=== PATIENT | female | born 1960 | race American Indian/Alaskan Native ===

== ENCOUNTER 2018-09-03 15:28 | Emergency (ER) | payer SELFPAY ==
[2018-09-03 15:28] VITALS: BMI 25.8
[2018-09-03 15:51] VITALS: O2SAT 98
[2018-09-03] MEDS ORDERED: Sodium Chloride 0.9% 1,000 ML IV SCH (16:15)
[2018-09-03 16:36] LABS: BASO # 0.01 K/mm3 (0.0-2.0); BASO % 0.2 % (0.0-3.0); EOS # 0.2 (0.0-0.7); EOS % 3.6 % (1.5-5.0); HEMOGLOBIN 12.7 g/dL (12.0-16.0); LYMPH # 1.6 (1.2-3.4); LYMPH % 33.7 % (22.0-35.0); MEAN CELL VOLUME 78.4 fl (80.0-105.0); MEAN CORPUSCULAR HGB CONC 31.8 g/dl (31.0-37.0); MEAN PLATELET VOLUME 9.9 fl (7.0-11.0); MONO # 0.4 (0.1-0.6); MONO % 9.2 % (1.0-6.0); RBC 5.09 10^6/uL (3.5-6.1); RED CELL DISTRIBUTION WIDTH 14.4 % (11.5-14.5); WHITE BLOOD COUNT 4.7 10^3/uL (4.5-11.0)
[2018-09-03 17:05] LABS: ALB/GLOB RATIO 0.9 (1.1-1.8); ALBUMIN 4.1 g/dL (3.0-4.8); ALT/SGPT 33 U/L (7-56); AST/SGOT 46 U/L (14-36); BLOOD UREA NITROGEN 17 mg/dL (7-21); GFR NON-AFRICAN AMERICAN > 60
--- NOTE | 2018-09-03 17:11 | RAD ---
Date of service: 09/03/2018 HISTORY: r/o infiltrate COMPARISON: No prior. FINDINGS: LUNGS: No active pulmonary disease. PLEURA: No significant pleural effusion identified, no pneumothorax apparent. CARDIOVASCULAR: No atherosclerotic calcification present Normal. OSSEOUS STRUCTURES: No significant abnormalities. VISUALIZED UPPER ABDOMEN: Normal. OTHER FINDINGS: None. IMPRESSION: No active disease.
[2018-09-03 17:15] LABS: TROPONIN I < 0.01 ng/mL
--- NOTE | 2018-09-03 17:42 | ED PDOC ---
Arrival/HPI - General Chief Complaint: Dizziness/Lightheaded Time Seen by Provider: 09/03/18 15:37 Historian: Patient - History of Present Illness Narrative History of Present Illness (Text): 09/03/18 17:42 58 year old female, with a Past medical history of hypertension, who presents to the Emergency department complaining of dizziness onset earlier today. Patient reports she stood from sitting on a toilet and seconds later began feeling dizzy. She reports episodes of dizziness last for a few seconds and states that it has now subsided. Patient denies any loss of consciousness, fever, headaches, cough, nausea, vomiting, fatigue or any other complaints. Time/Duration: 24 hours Symptom Onset: Sudden Symptom Course: Unchanged Activities at Onset: Light Context: Home Past Medical History - Provider Review Nursing Documentation Reviewed: Yes - Cardiac Hx Hypertension: Yes - Psychiatric Hx Depression: No Hx Emotional Abuse: No Hx Physical Abuse: No Hx Substance Use: No - Past Surgical History Past Surgical History: Non-Contributing - Suicidal Assessment Feels Threatened In Home Enviroment: No Family/Social History - Physician Review Nursing Documentation Reviewed: Yes Family/Social History: Unknown Family HX Smoking Status: Never Smoked Hx Alcohol Use: No Hx Substance Use: No Hx Substance Use Treatment: No Allergies/Home Meds Allergies/Adverse Reactions: Allergies No Known Allergies Allergy (Verified 03/28/13 17:30) Review of Systems - Physician Review All systems were reviewed & negative as marked: Yes - Review of Systems Constitutional: absent: Fatigue, Fevers Respiratory: absent: SOB, Cough Cardiovascular: absent: Chest Pain Gastrointestinal: absent: Abdominal Pain, Nausea, Vomiting Musculoskeletal: absent: Back Pain, Neck Pain Skin: absent: Rash Neurological: Dizziness. absent: Headache Physical Exam Vital Signs Reviewed: Yes Vital Signs Temp Pulse Resp BP Pulse Ox 09/03/18 15:46 98.2 F 86 18 155/78 H 98 Temperature: Afebrile Blood Pressure: Hypertensive Pulse: Regular Respiratory Rate: Normal Appearance: Positive for: Well-Appearing, Non-Toxic, Comfortable Pain Distress: None Mental Status: Positive for: Alert and Oriented X 3 - Systems Exam Head: Present: Atraumatic, Normocephalic Pupils: Present: PERRL Extroacular Muscles: Present: EOMI Conjunctiva: Present: Normal Mouth: Present: Moist Mucous Membranes Neck: Present: Normal Range of Motion Respiratory/Chest: Present: Clear to Auscultation, Good Air Exchange. No: Respiratory Distress, Accessory Muscle Use Cardiovascular: Present: Regular Rate and Rhythm, Normal S1, S2. No: Murmurs Abdomen: No: Tenderness, Distention, Peritoneal Signs Back: Present: Normal Inspection Upper Extremity: Present: Normal Inspection. No: Cyanosis, Edema Lower Extremity: Present: Normal Inspection. No: Edema Neurological: Present: GCS=15, Speech Normal Skin: Present: Warm, Dry, Normal Color. No: Rashes Psychiatric: Present: Alert, Oriented x 3, Normal Insight, Normal Concentration Medical Decision Making ED Course and Treatment: 09/03/18 17:39 Impression: 58 year old female presents to the Emergency department complaining of dizziness onset earlier today. Differential Diagnosis included but are not limited to: Plan: -- Chest X-ray -- CT head -- EKG -- IV Fluids -- Basic labs -- Reassess and disposition Prior Visits: Notes and results from previous visits were reviewed. Progress Notes: EKG reviewed, shows NSR at 62, normal axis and interval 09/03/18 19:00 I spoke with patient extensively about the CAT Scan reading. I stated patient will require further testing in the future for definite diagnosis based upon findings. Patient does have a PCP, but i gave the option of seeing a physician here in our clinic. Patient understood and will follow up in 2 days. - Lab Interpretations Lab Results: Troponin I < 0.01 ng/mL 09/03/18 16:25 Total Bilirubin 1.1 mg/dL (0.2-1.3) 09/03/18 16:25 AST 46 U/L (14-36) H 09/03/18 16:25 ALT 33 U/L (7-56) 09/03/18 16:25 Alkaline Phosphatase 95 U/L (38-126) 09/03/18 16:25 Total Protein 8.3 g/dL (5.8-8.3) 09/03/18 16:25 Albumin 4.1 g/dL (3.0-4.8) 09/03/18 16:25 Globulin 4.3 gm/dL 09/03/18 16:25 Albumin/Globulin Ratio 0.9 (1.1-1.8) L 09/03/18 16:25 - RAD Interpretation Radiology Orders: 09/03/18 16:09 HEAD W/O CONTRAST [CT] Stat 09/03/18 16:11 CHEST PORTABLE [RAD] Stat - Medication Orders Current Medication Orders: Sodium Chloride (Sodium Chloride 0.9%) 1,000 mls @ 100 mls/hr IV .Q10H MARIA L Last Admin: 09/03/18 16:42 Dose: 100 mls/hr eMAR Start Stop Document 09/03/18 16:42 MA (Rec: 09/03/18 16:42 MA [facility] [id number]) Intravenous Solution Start Date 09/03/18 Start Time 16:42 - Scribe Statement The provider has reviewed the documentation as recorded by the Scribe Jamal Lopez All medical record entries made by the Scribe were at my direction and personally dictated by me. I have reviewed the chart and agree that the record accurately reflects my personal performance of the history, physical exam, medical decision making, and the department course for this patient. I have also personally directed, reviewed, and agree with the discharge instructions and disposition. Disposition/Present on Arrival - Present on Arrival Any Indicators Present on Arrival: No History of DVT/PE: No History of Uncontrolled Diabetes: No Urinary Catheter: No History of Decub. Ulcer: No History Surgical Site Infection Following: None - Disposition Have Diagnosis and Disposition been Completed?: Yes Diagnosis: Dizziness Disposition: HOME/ ROUTINE Disposition Time: 18:25 Condition: GOOD Discharge Instructions (ExitCare): Dizziness, Nonvertigo, (DC) Additional Instructions: MAT RAYGOZA, thank you for letting us take care of you today. The emergency medical care you received today was directed at your acute symptoms. If you were prescribed any medication, please fill it and take as directed. It may take s everal days for your symptoms to resolve. Return to the Emergency Department if your symptoms worsen, do not improve, or if you have any other problems. Please contact your doctor or call one of the physicians/clinics you have been referred to that are listed on the Patient Visit Information form that is included in your discharge packet. Bring any paperwork you were given at discharge with you along with any medications you are taking to your follow up visit. Our treatment cannot replace ongoing medical care by a primary care provider outside of the emergency department. Thank you for allowing the [facility] team to be part of your care today. Please follow up with your doctor or our clinic in 2-3 days for further management. You will need further testing based upon what we discovered here in the emergency room today. Referrals: [facility] [employer] [facility] [Outside] - Follow up with primary Raven Charles MD [Medical Doctor] - Follow up with primary Forms: [employer] (Danish)
--- NOTE | 2018-09-03 18:00 | CT ---
Date of service: 09/03/2018 PROCEDURE: CT HEAD WITHOUT CONTRAST. HISTORY: Dizziness, intracranial hemorrhage suspected COMPARISON: None available. TECHNIQUE: Axial computed tomography images were obtained through the head/brain without intravenous contrast. Supplemental Coronal and Sagittal projections created and reviewed. Radiation dose: Total exam DLP = 852.96 mGy-cm. This CT exam was performed using one or more of the following dose reduction techniques: Automated exposure control, adjustment of the mA and/or kV according to patient size, and/or use of iterative reconstruction technique. FINDINGS: HEMORRHAGE: No intracranial hemorrhage. BRAIN: No mass effect or edema. No atrophy or chronic microvascular ischemic changes. VENTRICLES: Unremarkable. No hydrocephalus. CALVARIUM: Mottled appearance, multiple confluent, lytic lesions throughout the calvarium. Additional lesions involving base of skull, clivus. The overall appearance favors myeloma. Lytic metastatic disease can also assume this appearance. My discussions with the attending physician in the emergency department indicate there is no history of neoplasm. PARANASAL SINUSES: Unremarkable as visualized. No significant inflammatory changes. MASTOID AIR CELLS: Unremarkable as visualized. No inflammatory changes. OTHER FINDINGS: None. IMPRESSION: No acute intracranial abnormalities or suspicious findings with respect to intra cranial contents. Lytic, permeative pattern throughout the calvarium. The overall appearance suggests possibility of myeloma or lytic metastatic disease, there is no known primary or history of neoplasm. Communication of results: I discussed findings directly with the attending physician in the emergency department Dr. Augustine Hunter at 17:53.
[2018-09-03 18:55] VITALS: BP 169/82; PULSE 83; RESP 18; TEMP 98.4
--- NOTE | 2018-09-04 10:26 | CARD ---
APPROVED REPORT Date of service: 09/03/2018 EKG Measurement Heart [id number] <Conclusion> Normal sinus rhythm Normal ECG
== END 2018-09-03 18:54 | disposition home or self-care (01) ==
LOC: ED 15:28
DX: R42 Dizziness and giddiness (principal); I10 Essential (primary) hypertension
CPT/HCPCS: 70450; 71045; 80053; 84484; 85025; 93005; 99284; J7030